=== PATIENT | female | born 1995 | race Caucasian/White ===

== ENCOUNTER 2018-11-01 20:13 | Outpatient (CLI) | payer MEDICAID ==
[~2018-11-01] VITALS: Ht 172.7 cm; Wt 88.6 kg
--- NOTE | 2018-11-01 20:25 | NUR ---
2024- PT PRESENTS TO LDR COMPLAINING OF CONTRACTIONS AND PELVIC PRESSURE, AMBULATORY TO ROOM LR2, CHANGED INTO GOWN, URINE SPECIMEN PROVIDED. 2033- EFM X2 APPLIED. PT DENIES LEAKING FLUID OR VAGINAL BLEEDING, STATES SHE IS FEELING THE BABY MOVE NORMALLY. 2039- SVE BY THIS NURSE . BLOOD PRESSURE ELEVATED AND WILL RECHECK. 2044- NURSING ADMISSION HISTORY AND ASSESSMENT COMPLETE. PT STATES SHE HAS HAD SOME INTERMITTENT HEADACHES THAT SHE WAS ENCOURAGED TO TRY CAFFEINE FOR AND HAS HAD SOME "BUBBLES" IN HER VISION. DENIES EPIGASTRIC OR RUQ PAIN. 2049- BLOOD PRESSURE STILL ELEVATED. 2054- DR JAUREGUI CALLS AND IS UPDATED ON PT HISTORY, COMPLAINT, BLOOD PRESSURES, SVE, AND STRIP. ORDERS RECEIVED FOR CBC AND CMP IN ADDITION TO URINE. 2099- PT UPDATED ON PLAN OF CARE AND DISCUSSED POSSIBLE TREATMENTS, LABS, AND MEDICATIONS. PT QUESTIONS ANSWERED. 2214- SVE BY THIS NURSE . DISCUSSED THAT LAB RESULTS WERE SOMEWHAT ABNORMAL AND NOW SHE HAD CERVICAL CHANGE. DR JAUREGUI WILL BE NOTIFIED AND PT EDUCATED ON POSSIBLE TREATMENTS INCLUDING POSSIBLE TRANSFER. QUESTIONS ANSWERED. 2224- DR JAUREGUI CALLED AND UPDATED ON LAB RESULTS AND CHANGE IN SVE. ORDERS RECEIVED FOR MAGNESIUM SULFATE ADMINISTRATION. DR JAUREGUI WILL COME TO BEDSIDE TO EVALUATE FOR POSSIBLE TRANSFER. 2244- MAGNESIUM SULFATE 4GM BOLUS STARTED IV IN LEFT FOREARM. VERIFIED WITH JESÚS NASH RN.
[2018-11-01 21:00] VITALS: BP 149/100; PULSE 90; TEMP 97.7
[2018-11-01 21:25] LABS: COLLECTION METHOD CLEAN CATCH
[2018-11-01 21:30] VITALS: BP 160/85; PULSE 82
[2018-11-01 21:30] LABS: BASO % 0.3 % (0.0-2.0); EOS # 0.1 (0.0-0.7); EOS % 0.6 % (0-4.0); GRAN # 7.9 (1.4-6.5); GRAN % 74.6 % (42.2-75.2); HEMOGLOBIN 11.5 g/dl (12.5-16.0); LYMPH % 18.7 % (20.0-51.0); MEAN CELL VOLUME 87 fl (80.0-100.0); MEAN CORPUSCULAR HEMOGLOBIN 29 pg (27.0-31.0); MEAN CORPUSCULAR HGB CONC 34 g/dl (33.0-37.0); MEAN PLATELET VOLUME 13.1 fl (7.4-10.4); MONO # 0.6 (0.1-0.6); MONO % 5.3 % (1.7-9.3); PLATELET COUNT 163 K/mm3 (130-400); RED BLOOD COUNT 3.94 M/mm3 (4.10-5.30); REDCELL DISTRIBUTION WIDTH-CV 13.5 % (11.5-14.5)
[2018-11-01 21:35] LABS: PH 6 (5-8); SQUAMOUS EPITHELIAL 0-2 /hpf; URINE APPEARANCE Clear; URINE BACTERIA None Seen /hpf; URINE BILIRUBIN Negative (NEGATIVE); URINE BLOOD Negative (NEGATIVE); URINE COLOR Yellow; URINE GLUCOSE 3+ (NEGATIVE); URINE KETONE Trace (NEGATIVE); URINE LEUKOCYTE ESTERASE Negative (NEGATIVE); URINE NITRATE Negative (NEGATIVE); URINE PROTEIN(semi-quant) 2+ (NEGATIVE); URINE RBC 0-2 /hpf; URINE UROBILINOGEN Negative (NEGATIVE); URINE WBC 0-2 /hpf
[2018-11-01] MEDS ORDERED: HUMALOG100 U/ML SQ (21:36)
[2018-11-01 21:37] LABS: HEMATOCRIT 34.2 % (37.0-47.0)
[2018-11-01] MEDS ORDERED: NEURONTIN400 MG/CAP PO (21:37)
[2018-11-01 21:38] LABS: ALANINE AMINOTRANSFERASE < 6 U/L (9-52); ALBUMIN 3.2 gm/dL (3.5-5.0); ALKALINE PHOSPHATASE 163 U/L (50-136); ANION GAP 8 mmol/L (7-16); AST,SGOT 19 U/L (15-37); BILIRUBIN,TOTAL 0.3 mg/dL (0.0-1.0); BLOOD UREA NITROGEN 7 mg/dL (7-17); CALCIUM 8.5 mg/dL (8.4-10.2); CARBON DIOXIDE 20 mmol/L (22-30); CHLORIDE 104 mmol/L (98-107); CREATININE, serum 0.59 (0.52-1.25); GLUCOSE 227 mg/dL (74-106); POTASSIUM 3.7 mmol/L (3.4-5.0); SODIUM 132 mmol/L (137-145); TOTAL PROTEIN 6.5 gm/dL (6.4-8.2)
[2018-11-01] MEDS ORDERED: PRENATAL VITAMI1 TA3 PO (21:40)
[2018-11-01 22:00] VITALS: BP 143/93; PULSE 88
[2018-11-01 22:30] VITALS: BP 154/104; PULSE 95
--- NOTE | 2018-11-01 22:55 | NUR ---
2254- DR JAUREGUI AT DESK REVIEWING LABS. 2299- DR JAUREGUI AT BEDSIDE AND DISCUSSES PLAN OF CARE WITH PT. QUESTIONS ANSWERED. 2304- MAGNESIUM SULFATE 2GM MAINTENENCE DOSE STARTED. 2305- BEDSIDE SONO USED TO VERIFY BREECH PRESENTATION OF BABY. 2311- SVE BY DR JAUREGUI 1--3. 2319- DR JAUREGUI ON PHONE WITH ADILSON RUBIO DR.
[2018-11-01 23:00] VITALS: BP 147/105; PULSE 123
[2018-11-01 23:30] VITALS: BP 152/92; PULSE 112
--- NOTE | 2018-11-01 23:50 | NUR ---
2350- NURSE TO BEDSIDE TO ADJUST MONITORS. PLAN OF CARE DISCUSSED WITH PT THAT WAS GOING TO RECHECK HER CERVIX IN ABOUT 15MINUTES AND THEN CALL ADILSON HADDAD BACK. 0010- DR JAUREGUI AT BEDSIDE. SVE /3. PT STATES HER CONTRACTIONS ARE MUCH LESS NOTICEABLE BUT THAT SHE DOES NOW HAVE A HEADACHE. TYLENOL ORDERED FOR HEADACHE. 0020- DR JAUREGUI ON PHONE WITH ADILSON HADDAD. PT TO BE TRANSFERRED. 0027- CLIENT COORDINATOR CALLED AND UPDATED ON PT TRANSFER. DR JAUREGUI UPDATES PT ON PLAN OF CARE AND TRANSFER. ANSWERS QUESTIONS. 0050- PEN G IV STARTED ORDERED. 0055- EMS TRANSPORT TEAM HERE FOR PT. PT OFF MONITOR FOR TRANSPORT. REPORT GIVEN TO TRANSPORT TEAM. 0119- TRANSPORT TEAM LEAVES WITH PT AND PT BELONGINGS. 0122- REPORT CALL[facility] TO [facility] RN AT [facility].
[2018-11-02] VITALS: BP 140/88; PULSE 98
[2018-11-02 00:30] VITALS: BP 141/91; PULSE 86; TEMP 98
[2018-11-02 00:55] VITALS: BP 149/92; PULSE 88
== END 2018-11-02 01:19 | disposition other institution (70) ==
LOC: LDRO 20:13
PROVIDERS: Obstetrics & Gynecology
DX: O62.9 Abnormality of forces of labor, unspecified (principal); O26.893 Other specified pregnancy related conditions, third trimester; Z3A.34 34 weeks gestation of pregnancy; R10.2 Pelvic and perineal pain
CPT/HCPCS: J2540; J3475; J7120

== ENCOUNTER 2019-05-13 19:27 | Emergency (ER) | payer MEDICAID ==
[~2019-05-13] VITALS: Ht 172.7 cm; Wt 72.7 kg
[~2019-05-13 19:27] MED LIST: HUMALOG100 U/ML SQ; NEURONTIN400 MG/CAP PO; PRENATAL VITAMI1 TA3 PO
[2019-05-13 19:44] VITALS: BP 116/64; TEMP 98.4
[2019-05-13 20:43] LABS: COLLECTION METHOD CLEAN CATCH
[2019-05-13 20:43] LABS: BASO % 0.6 % (0.0-2.0); EOS # 0.2 (0.0-0.7); EOS % 3.4 % (0-4.0); GRAN # 2.5 (1.4-6.5); GRAN % 48.9 % (42.2-75.2); LYMPH # 2.1 (1.2-3.4); LYMPH % 41.2 % (20.0-51.0); MEAN CELL VOLUME 87 fl (80.0-100.0); MEAN CORPUSCULAR HEMOGLOBIN 29 pg (27.0-31.0); MEAN CORPUSCULAR HGB CONC 33 g/dl (33.0-37.0); MEAN PLATELET VOLUME 11.3 fl (7.4-10.4); MONO # 0.3 (0.1-0.6); MONO % 5.9 % (1.7-9.3); PLATELET COUNT 269 K/mm3 (130-400); RED BLOOD COUNT 4.15 M/mm3 (4.10-5.30); REDCELL DISTRIBUTION WIDTH-CV 12.6 % (11.5-14.5)
[2019-05-13 20:44] LABS: HEMATOCRIT 36.2 % (37.0-47.0)
[2019-05-13 20:49] LABS: PH 6 (5-8); URINE APPEARANCE Clear; URINE BACTERIA None Seen /hpf; URINE BILIRUBIN Negative (NEGATIVE); URINE BLOOD Negative (NEGATIVE); URINE COLOR Yellow; URINE GLUCOSE 3+ (NEGATIVE); URINE KETONE Negative (NEGATIVE); URINE LEUKOCYTE ESTERASE Negative (NEGATIVE); URINE NITRATE Negative (NEGATIVE); URINE PROTEIN(semi-quant) Negative (NEGATIVE); URINE RBC 0-2 /hpf; URINE UROBILINOGEN Negative (NEGATIVE)
[2019-05-13 20:56] LABS: ALBUMIN 4.4 gm/dL (3.5-5.0); BILIRUBIN,TOTAL 0.2 mg/dL (0.0-1.0); CALCIUM 9.1 mg/dL (8.4-10.2); CREATININE, serum 0.66 (0.52-1.25); POTASSIUM 4.3 mmol/L (3.4-5.0); TOTAL PROTEIN 7.1 gm/dL (6.4-8.2)
[2019-05-13 23:10] VITALS: PULSE 76
== END 2019-05-13 23:14 | disposition home or self-care (01) ==
LOC: COL.ER 19:27
PROVIDERS: Emergency Medicine
DX: K92.1 Melena (principal); E10.9 Type 1 diabetes mellitus without complications; Z90.89 Acquired absence of other organs
CPT/HCPCS: J7030; Q9967

== ENCOUNTER 2019-05-16 16:15 | Outpatient (RCR) | payer MEDICAID | END 2019-07-21 | disposition home or self-care (01) | LOC: WSC | DX: M25.561 Pain in right knee (principal) ==

== ENCOUNTER → 2019-05-23 | Outpatient (CLI) | payer MEDICAID | LOC: COL.LAB 10:04 | PROVIDERS: Family Medicine | DX: N91.2 Amenorrhea, unspecified (principal) ==

== ENCOUNTER 2019-06-24 15:09 | Emergency (ER) | payer MEDICAID ==
[~2019-06-24] VITALS: Ht 172.7 cm; Wt 72.7 kg
[2019-06-24 15:13] VITALS: BP 144/78; TEMP 98.5
[2019-06-24 16:27] VITALS: PULSE 89
== END 2019-06-24 16:24 | disposition home or self-care (01) ==
LOC: COL.ER 15:09
DX: O24.019 Pre-existing type 1 diabetes mellitus, in pregnancy, unspecified trimester (principal); O99.330 Smoking (tobacco) complicating pregnancy, unspecified trimester; E10.40 Type 1 diabetes mellitus with diabetic neuropathy, unspecified; F17.210 Nicotine dependence, cigarettes, uncomplicated; Z3A.00 Weeks of gestation of pregnancy not specified

== ENCOUNTER → 2019-06-26 | Outpatient (CLI) | payer MEDICAID | LOC: ZCOL.LAB 16:16 | DX: N89.8 Other specified noninflammatory disorders of vagina (principal) ==

== ENCOUNTER 2019-07-06 20:49 | Emergency (ER) | payer MEDICAID ==
[~2019-07-06] VITALS: Ht 172.7 cm; Wt 72.7 kg
[2019-07-06 21:07] VITALS: TEMP 99
[2019-07-06 21:49] LABS: BASO % 0.3 % (0.0-2.0); EOS # 0.2 (0.0-0.7); EOS % 1.5 % (0-4.0); GRAN # 7.8 (1.4-6.5); GRAN % 67.8 % (42.2-75.2); HEMATOCRIT 38.4 % (37.0-47.0); HEMOGLOBIN 12.7 g/dl (12.5-16.0); LYMPH # 2.8 (1.2-3.4); LYMPH % 24.1 % (20.0-51.0); MEAN CELL VOLUME 87 fl (80.0-100.0); MEAN CORPUSCULAR HEMOGLOBIN 29 pg (27.0-31.0); MEAN CORPUSCULAR HGB CONC 33 g/dl (33.0-37.0); MEAN PLATELET VOLUME 10.7 fl (7.4-10.4); MONO # 0.7 (0.1-0.6); MONO % 5.8 % (1.7-9.3); PLATELET COUNT 335 K/mm3 (130-400); RED BLOOD COUNT 4.42 M/mm3 (4.10-5.30)
[2019-07-06 22:05] LABS: ACETONE,SERUM NEGATIVE
[2019-07-06 22:18] LABS: ALBUMIN 4.5 gm/dL (3.5-5.0); CARBON DIOXIDE 22 mmol/L (22-30)
[2019-07-06 22:29] LABS: ALANINE AMINOTRANSFERASE 18 U/L (9-52); ALKALINE PHOSPHATASE 78 U/L (50-136); AST,SGOT 22 U/L (15-37); BILIRUBIN,TOTAL < 0.1 mg/dL (0.0-1.0); BLOOD UREA NITROGEN 15 mg/dL (7-17); CALCIUM 9.1 mg/dL (8.4-10.2); CHLORIDE 103 mmol/L (98-107); CREATININE, serum 0.44 (0.52-1.25); GLUCOSE 232 mg/dL (74-106); SODIUM 136 mmol/L (137-145); TOTAL PROTEIN 7.3 gm/dL (6.4-8.2)
[2019-07-06 22:46] LABS: ANION GAP 11 mmol/L (7-16); HCG,QUANTITATIVE 15000 mIU/mL (0-5)
[2019-07-06 22:49] LABS: COLLECTION METHOD CLEAN CATCH
[2019-07-06 22:55] LABS: PH 6 (5-8); SQUAMOUS EPITHELIAL 0-2 /hpf; URINE APPEARANCE Clear; URINE BACTERIA None Seen /hpf; URINE BILIRUBIN Negative (NEGATIVE); URINE BLOOD Negative (NEGATIVE); URINE COLOR Yellow; URINE GLUCOSE 3+ (NEGATIVE); URINE KETONE Negative (NEGATIVE); URINE LEUKOCYTE ESTERASE Negative (NEGATIVE); URINE NITRATE Negative (NEGATIVE); URINE PROTEIN(semi-quant) Negative (NEGATIVE); URINE RBC 0-2 /hpf; URINE UROBILINOGEN Negative (NEGATIVE)
[2019-07-07 00:27] VITALS: BP 118/62; PULSE 91
== END 2019-07-07 00:27 | disposition home or self-care (01) ==
LOC: COL.ER 20:49
PROVIDERS: Emergency Medicine
DX: O24.011 Pre-existing type 1 diabetes mellitus, in pregnancy, first trimester (principal); O26.891 Other specified pregnancy related conditions, first trimester; Z3A.00 Weeks of gestation of pregnancy not specified; Z90.89 Acquired absence of other organs
CPT/HCPCS: J7030

== ENCOUNTER 2019-07-11 16:28 | Emergency (ER) | payer MEDICAID ==
[~2019-07-11] VITALS: Ht 172.7 cm; Wt 75.9 kg
[2019-07-11 16:33] VITALS: BP 107/57; TEMP 98.7
[2019-07-11 17:46] LABS: COLLECTION METHOD CLEAN CATCH
[2019-07-11 17:52] LABS: HEMATOCRIT 38.9 % (37.0-47.0); MEAN CELL VOLUME 87 fl (80.0-100.0); MEAN CORPUSCULAR HEMOGLOBIN 29 pg (27.0-31.0); MEAN CORPUSCULAR HGB CONC 33 g/dl (33.0-37.0); MEAN PLATELET VOLUME 10.5 fl (7.4-10.4); PLATELET COUNT 299 K/mm3 (130-400); RED BLOOD COUNT 4.49 M/mm3 (4.10-5.30); REDCELL DISTRIBUTION WIDTH-CV 13.4 % (11.5-14.5)
[2019-07-11 18:00] LABS: MUCOUS Present /lpf; PH 5 (5-8); SQUAMOUS EPITHELIAL 20-50 /hpf; URINE APPEARANCE Cloudy; URINE BACTERIA None Seen /hpf; URINE BILIRUBIN Negative (NEGATIVE); URINE BLOOD Negative (NEGATIVE); URINE COLOR Yellow; URINE GLUCOSE 3+ (NEGATIVE); URINE KETONE Negative (NEGATIVE); URINE LEUKOCYTE ESTERASE Negative (NEGATIVE); URINE NITRATE Negative (NEGATIVE); URINE PROTEIN(semi-quant) Negative (NEGATIVE); URINE RBC 0-2 /hpf; URINE UROBILINOGEN Negative (NEGATIVE)
[2019-07-11 18:09] LABS: ALBUMIN 4.3 gm/dL (3.5-5.0); BILIRUBIN,TOTAL 0.5 mg/dL (0.0-1.0); CALCIUM 8.2 mg/dL (8.4-10.2); CREATININE, serum 0.5 (0.52-1.25); POTASSIUM 3.5 mmol/L (3.4-5.0); TOTAL PROTEIN 7.2 gm/dL (6.4-8.2)
[2019-07-11 18:20] LABS: BAND 11 % (0-10); LYMPHOCYTE 6 % (20.0-51.0); NEUTROPHILS 81 % (42.0-75.2); PLATELET ESTIMATE NORMAL (NORMAL)
[2019-07-11 21:45] VITALS: PULSE 102
== END 2019-07-11 21:45 | disposition home or self-care (01) ==
LOC: COL.ER 16:28
PROVIDERS: Nurse Practitioner
DX: R11.10 Vomiting, unspecified (principal); R10.10 Upper abdominal pain, unspecified; E10.9 Type 1 diabetes mellitus without complications; Z90.89 Acquired absence of other organs; Z88.1 Allergy status to other antibiotic agents
CPT/HCPCS: J2405; J2550; J7030

== ENCOUNTER 2019-08-03 04:20 | Emergency (ER) | payer MEDICAID ==
[~2019-08-03] VITALS: Ht 172.7 cm; Wt 75.9 kg
[2019-08-03 04:22] VITALS: TEMP 99.4
[2019-08-03] MEDS ORDERED: INSULIN HUMA100 U/ML (04:41)
[2019-08-03] MEDS ORDERED: ASPIRIN E.C. 8181 MG PO (04:41)
[2019-08-03] MEDS ORDERED: PRENATAL TABLET PO (04:42)
[2019-08-03] MEDS ORDERED: ZOFRAN 4MG T4 MG/TAB PO (04:42)
[2019-08-03 04:44] LABS: COLLECTION METHOD CLEAN CATCH
[2019-08-03 04:56] LABS: MUCOUS Present /lpf; PH 6 (5-8); SQUAMOUS EPITHELIAL 20-50 /hpf; URINE APPEARANCE Cloudy; URINE BACTERIA Rare /hpf; URINE BILIRUBIN Negative (NEGATIVE); URINE BLOOD Negative (NEGATIVE); URINE COLOR Yellow; URINE GLUCOSE 3+ (NEGATIVE); URINE KETONE Trace (NEGATIVE); URINE LEUKOCYTE ESTERASE Negative (NEGATIVE); URINE NITRATE Negative (NEGATIVE); URINE PROTEIN(semi-quant) Negative (NEGATIVE); URINE RBC 0-2 /hpf; URINE UROBILINOGEN Negative (NEGATIVE)
[2019-08-03 05:07] LABS: BASO % 0.2 % (0.0-2.0); EOS % 0.3 % (0-4.0); GRAN # 7.3 (1.4-6.5); GRAN % 83.9 % (42.2-75.2); HEMOGLOBIN 10.2 g/dl (12.5-16.0); LYMPH # 0.6 (1.2-3.4); LYMPH % 6.6 % (20.0-51.0); MEAN CELL VOLUME 86 fl (80.0-100.0); MEAN CORPUSCULAR HEMOGLOBIN 29 pg (27.0-31.0); MEAN CORPUSCULAR HGB CONC 33 g/dl (33.0-37.0); MONO # 0.7 (0.1-0.6); MONO % 8.5 % (1.7-9.3); PLATELET COUNT 201 K/mm3 (130-400); RED BLOOD COUNT 3.55 M/mm3 (4.10-5.30); REDCELL DISTRIBUTION WIDTH-CV 13.5 % (11.5-14.5)
[2019-08-03 05:08] LABS: HEMATOCRIT 30.6 % (37.0-47.0)
[2019-08-03 05:17] LABS: ALBUMIN 3.4 gm/dL (3.5-5.0); BILIRUBIN,TOTAL 0.2 mg/dL (0.0-1.0); CALCIUM 8.2 mg/dL (8.4-10.2); CREATININE, serum 0.54 (0.52-1.25); POTASSIUM 3.2 mmol/L (3.4-5.0)
[2019-08-03 05:44] VITALS: BP 103/60
[2019-08-03] MEDS ORDERED: TAMIFLU 75MG75 MG PO (05:49)
[2019-08-03 06:11] VITALS: PULSE 104
== END 2019-08-03 06:11 | disposition home or self-care (01) ==
LOC: COL.ER 04:20
PROVIDERS: Emergency Medicine
DX: O26.891 Other specified pregnancy related conditions, first trimester (principal); O24.011 Pre-existing type 1 diabetes mellitus, in pregnancy, first trimester; E10.40 Type 1 diabetes mellitus with diabetic neuropathy, unspecified; J11.1 Influenza due to unidentified influenza virus with other respiratory manifestations; E87.6 Hypokalemia; Z3A.11 11 weeks gestation of pregnancy; Z79.82 Long term (current) use of aspirin; Z90.89 Acquired absence of other organs
CPT/HCPCS: J2765; J7030

== ENCOUNTER 2019-11-27 18:03 | Emergency (ER) | payer MEDICAID ==
[~2019-11-27] VITALS: Ht 172.7 cm; Wt 84.1 kg
[~2019-11-27 18:03] MED LIST changes: +ASPIRIN E.C. 8181 MG PO; +CEPHALEXIN500 M1 PO; +INSULIN HUMA100 U/ML; +PRENATAL TABLET PO; +TAMIFLU 75MG75 MG PO; +ZOFRAN 4MG T4 MG/TAB PO
[2019-11-27 20:52] VITALS: BP 108/69; PULSE 78; TEMP 98.2
[2019-11-27] MEDS ORDERED: CLEOCIN HCL300 MG PO (20:59)
--- NOTE | 2019-11-27 21:15 | NUR ---
G2L1 at 28.1 weeks gestation to LDR2 from the ER. In the ER she was being evaluated from an infected toe and had a nonreactive FHR strip, followed by a BPP of 2/8, so she was sent to L&D for extended FHR monitoring. She has type 1 DM with an insulin pump. Baby has gastroschisis and delivery is planned at [facility] in [place]. EFMs applied and FHR 140 bpm and reactive. No CTX per toco or patient reports. VSS. Patient reports good movement and denies leaking of fluid or vaginal bleeding. Assessment completed and plan of care reviewed.
[2019-11-27 21:18] VITALS: BP 121/63; PULSE 75; TEMP 98.1
[2019-11-27 22:00] VITALS: BP 119/71; PULSE 71
--- NOTE | 2019-11-27 22:05 | NUR ---
NST reactive. Discharge instructions reviewed with patient. Patient discharged home.
== END 2019-11-27 20:52 ==
LOC: COL.ER 18:03 → LDRO 18:04 → COL.ER 18:04 → EDSTATUS 20:53 → LDRO 20:54 → LDR 20:54 → LDRO 22:05 → LDR 22:05 → LDRO 11-28 15:11 → EDSTATUS 12-01 09:55
DX: O98.813 Other maternal infectious and parasitic diseases complicating pregnancy, third trimester (principal); L08.9 Local infection of the skin and subcutaneous tissue, unspecified; O24.013 Pre-existing type 1 diabetes mellitus, in pregnancy, third trimester; E10.9 Type 1 diabetes mellitus without complications; Z79.82 Long term (current) use of aspirin; Z3A.28 28 weeks gestation of pregnancy
CPT/HCPCS: OP

== ENCOUNTER 2019-11-27 18:04 | Outpatient (CLI) | payer MEDICAID ==
[~2019-11-27] VITALS: Ht 172.7 cm; Wt 84.1 kg
[2019-11-27] MEDS ORDERED: CLEOCIN HCL300 MG PO (20:59)
--- NOTE | 2019-11-27 21:15 | NUR ---
G2L1 at 28.1 weeks gestations to LDR2 from the ER. In the ER she was being evaluated from an infected toe and had a nonreative FHR strip, followed by a BPP of 2/8, so she was sent to L&D for extended FHR monitoring. She has type 1 DM with and insulin pump. Baby has gastroschisis and delivery is planned at [facility] in [place]. EFMs applied and FHR 140 bpm and reactive. No CTX per toco or patient reports. VSS. Patient reports good movement and denies leaking of fluid or vaginal bleeding. Assessment completed and plan of care reviewed.
[2019-11-27 21:18] VITALS: BP 121/63; PULSE 75; TEMP 98.1
[2019-11-27 22:00] VITALS: BP 119/71; PULSE 71
--- NOTE | 2019-11-27 22:05 | NUR ---
NST reactive. Discharge instructions reviewed with patient. Patient discharged home.
== END 2019-11-27 22:05 | disposition home or self-care (01) ==
LOC: LDRO 18:04 → LDR 20:54 → LDRO 22:05
DX: O26.893 Other specified pregnancy related conditions, third trimester (principal); Z3A.28 28 weeks gestation of pregnancy
CPT/HCPCS: OP

== ENCOUNTER 2019-12-03 12:44 | Emergency (ER) | payer MEDICAID ==
[~2019-12-03] VITALS: Ht 172.7 cm; Wt 85.9 kg
[~2019-12-03 12:44] MED LIST changes: +CLEOCIN HCL300 MG PO
[2019-12-03 12:58] VITALS: BP 104/61; TEMP 97.8
[2019-12-03] MEDS ORDERED: HYDROCORTISONE30 G3 TP (13:33)
[2019-12-03 13:55] VITALS: PULSE 86
== END 2019-12-03 13:52 | disposition home or self-care (01) ==
LOC: COL.ER 12:44
DX: O99.713 Diseases of the skin and subcutaneous tissue complicating pregnancy, third trimester (principal); O24.913 Unspecified diabetes mellitus in pregnancy, third trimester; L20.9 Atopic dermatitis, unspecified; Z3A.29 29 weeks gestation of pregnancy; Z79.82 Long term (current) use of aspirin; Z80.8 Family history of malignant neoplasm of other organs or systems

== ENCOUNTER 2019-12-08 08:28 | Outpatient (CLI) | payer MEDICAID ==
[2019-12-08] VITALS (7 sets, daily range): BP systolic 100–144; BP diastolic 58–83; PULSE 77–92; TEMP 98
[~2019-12-08] VITALS: Ht 172.7 cm; Wt 86.8 kg
[~2019-12-08 08:28] MED LIST changes: +HYDROCORTISONE30 G3 TP
== END 2019-12-08 11:45 | disposition home or self-care (01) ==
LOC: LDRO 08:28 → COL.RAD 08:28 → LDR 08:28 → COL.RAD 11:45
DX: O36.8130 Decreased fetal movements, third trimester, not applicable or unspecified (principal); R51 Headache; Z3A.29 29 weeks gestation of pregnancy
CPT/HCPCS: OP; J2550; J7030